=== PATIENT | female | born 1990 | race Caucasian/White ===

== ENCOUNTER 2024-08-27 18:59 | Emergency (ER) | payer MEDICAID ==
[~2024-08-27] VITALS: Ht 152.4 cm; Wt 77.1 kg
[2024-08-27 19:01] VITALS: O2SAT 99
[2024-08-27 20:29] LABS: CLARITY URINE CLOUDY (CLEAR); COLOR URINE YELLOW (YELLOW); GLUCOSE URINE NEGATIVE (NEGATIVE); KETONES URINE NEGATIVE (NEGATIVE); LEUKOCYTE ESTERASE URINE 3+ (NEGATIVE); NITRITE URINE NEGATIVE (NEGATIVE); OCCULT BLOOD URINE 2+ (NEGATIVE); PH URINE 7.5 (4.5-8.0); PROTEIN URINE 1+ (NEGATIVE); SPECIFIC GRAVITY URINE 1.016 (1.005-1.030)
[2024-08-27 20:43] LABS: BACTERIA URINE 3+; SQUAMOUS EPITHELIAL CELL URINE 1+ /lpf (RARE/1+); WBC URINE 25-50 /hpf (0-2)
[2024-08-27] MEDS: CEFTRIAXONE 1GM/50ML 50 ML IV ONE (22:00)
[2024-08-27] MEDS: ACETAMINOPHEN 1000MG/100ML 100 ML IV ONE (22:00)
[2024-08-27] MEDS ORDERED: SULF1TAB48 MT (23:31)
[2024-08-27] MEDS ORDERED: TOPUD MT (23:31)
[2024-08-27] MEDS: ACETAMINOPHEN 325MG TABLET PO ONE (23:46)
[2024-08-27 23:47] VITALS: BP 119/77; PULSE 90; RESP 18; TEMP 37.11408; O2SAT 99
== END 2024-08-27 23:47 | disposition home or self-care (01) ==
LOC: ER 18:59
DX: R10.9 Unspecified abdominal pain (principal)
CPT/HCPCS: 99284; 96365; 81003; 81025; 87086; 87186; 87077; 96368; J0696; J0131